=== PATIENT | female | born 1975 | race Caucasian/White ===

== ENCOUNTER 2017-12-09 22:14 | Emergency (ER) | payer OTHER ==
[2017-12-09 23:45] LABS: URINE BLOOD (Dip) POC Trace-intact (NEGATIVE); URINE KETONES (Dip) POC Negative (NEGATIVE); URINE LEUKOCYTE EST (Dip) POC Negative (NEGATIVE); URINE NITRITE (Dip) POC Negative (NEGATIVE); URINE TOTAL PROTEIN POC 1+ (NEGATIVE)
[2017-12-09 23:45] LABS: URINE PH (Dip) POC 5.5 (5.0-8.5)
[2017-12-09] MEDS: HYDROCODONE/APAP (5/325) TAB PO (23:51)
[2017-12-09] MEDS: KETOROLAC 60 MG INJ IM (23:52)
== END 2017-12-10 00:18 | disposition home or self-care (01) ==
LOC: FTE 12-10 00:18
DX: M54.5 Low back pain (principal); E11.9 Type 2 diabetes mellitus without complications; Z79.4 Long term (current) use of insulin
CPT/HCPCS: 81003; 81025; 96372; 99284-25

== ENCOUNTER 2018-05-23 09:21 | Day surgery (SDC) | payer OTHER ==
[~2018-05-23 09:21] MED LIST: DESFLURANE 15 MIN; SUCCINYLCHOLINE CHLORIDE 100 MG/5 ML SYG IV
[2018-05-23 10:56] LABS: ADD MAN DIFF? NO
[2018-05-23 10:59] LABS: BASOPHILS % 0.3 % (0.0-2.0); EOSINOPHILS # 0.1 10^3/ul (0.0-0.5); EOSINOPHILS % 1.4 % (0.0-7.0); HEMATOCRIT 41.9 % (37.0-47.0); HEMOGLOBIN 13.8 g/dl (12.0-16.0); LYMPHOCYTES # 2.2 10^3/ul (0.8-2.9); LYMPHOCYTES % 37.6 % (15.0-51.0); MEAN CORPUSCULAR HEMOGLOBIN 28.6 pg (29.0-33.0); MEAN CORPUSCULAR HGB CONC 32.9 g/dl (32.0-37.0); MEAN CORPUSCULAR VOLUME 86.7 fl (82.0-101.0); MEAN PLATELET VOLUME 9.8 fl (7.4-10.4); MONOCYTE # 0.4 10^3/ul (0.3-0.9); MONOCYTES % 6.1 % (0.0-11.0); NEUTROPHIL # 3.2 10^3/ul (1.6-7.5); NEUTROPHILS % 54.4 % (39.0-77.0); PLATELET COUNT 245 10^3/UL (140-415); RED BLOOD COUNT 4.83 10^6/ul (4.20-5.40); RED CELL DISTRIBUTION WIDTH 13.2 % (11.5-14.5)
[2018-05-23 10:59] LABS: WHITE BLOOD COUNT 5.9 10^3/ul (4.8-10.8)
[2018-05-23] MEDS ORDERED: SOD CHLORIDE 0.9% 1,000 ML IV (11:00)
[2018-05-23] MEDS ORDERED: MIDAZOLAM 1 MG/ML 2 ML INJ (11:05)
[2018-05-23] MEDS ORDERED: PROPOFOL 20 ML (11:05)
[2018-05-23] MEDS ORDERED: GLYCOPYRROLATE 0.4 MG INJ (11:05)
[2018-05-23] MEDS ORDERED: FENTAnyl 50 MCG/ML VIAL (11:05)
[2018-05-23] MEDS ORDERED: ROCURONIUM 50 MG INJ (11:05)
[2018-05-23] MEDS ORDERED: DEXAMETHASONE 4 MG/ML 5 ML INJ (11:05)
[2018-05-23] MEDS ORDERED: CEFAZOLIN 1 GM INJ (11:05)
[2018-05-23] MEDS ORDERED: ONDANSETRON 4 MG INJ (11:05)
[2018-05-23 11:27] LABS: ALANINE AMINOTRANSFERASE 23 IU/L (13-69); ALBUMIN 4.5 g/dl (3.3-4.9); ALBUMIN/GLOBULIN RATIO 1.25; ALKALINE PHOSPHATASE 95 IU/L (42-121); ANION GAP 11 (5-13); ASPARTATE AMINO TRANSFERASE 25 IU/L (15-46); BILIRUBIN,INDIRECT 0.4 mg/dl (0-1.1); BILIRUBIN,TOTAL 0.4 mg/dl (0.2-1.3); BLOOD UREA NITROGEN 11 mg/dl (7-20); CALCIUM 9.3 mg/dl (8.4-10.2); CARBON DIOXIDE 26 mmol/L (21-31); CHLORIDE 104 mmol/L (97-110); CREATININE 0.49 mg/dl (0.44-1.00); Estimated GFR > 60 mL/min (>60); GLUCOSE 246 mg/dl (70-220); POTASSIUM 4.2 mmol/L (3.5-5.1); SODIUM 141 mmol/L (135-144); TOTAL PROTEIN 8.1 g/dl (6.1-8.1)
[2018-05-23 11:29] LABS: PROTIME 12.3 Sec (11.9-14.9)
[2018-05-23 11:30] LABS: PARTIAL THROMBOPLASTIN TIME 26.4 Sec (23.0-35.0)
[2018-05-23] MEDS: CEFAZOLIN 2 GM/50 ML (PMX) 50 ML IVPB (12:16)
[2018-05-23] MEDS ORDERED: MEPERIDINE 25 MG INJ IV (12:30)
[2018-05-23] MEDS ORDERED: hydrALAzine 20 MG INJ IV (12:30)
[2018-05-23] MEDS ORDERED: TRIMETHOBENZAMIDE 100 MG/ML VIAL IM (12:30)
[2018-05-23] MEDS ORDERED: IPRATROPIUM (NEB) 0.5 MG/2.5 ML AMP HHN (12:30)
[2018-05-23] MEDS ORDERED: FENTAnyl 50 MCG/ML VIAL IV ×2 (12:30)
[2018-05-23] MEDS ORDERED: LABETALOL HCL 20MG INJ IV (12:30)
[2018-05-23] MEDS ORDERED: EPHEDrine SULFATE 50 MG/5 ML SYG IV (12:30)
[2018-05-23] MEDS: BUPIVACAINE 0.25% (MPF) 30 ML INJ (12:32)
[2018-05-23] MEDS ORDERED: BACITRACIN 0.9 GM OINT ×2 (12:34→12:35)
[2018-05-23] MEDS: ONDANSETRON 4 MG INJ IV (13:06)
[2018-05-23] MEDS: HYDROmorphONE 1 MG/5 ML IV SYRINGE IV ×4 (13:07→14:13)
[2018-05-23] MEDS: HYDROCODONE/APAP (5/325) TAB PO (13:10)
[2018-05-23] MEDS: DIPHENHYDRAMINE 50 MG INJ IV (13:13)
[2018-05-23] MEDS: MIDAZOLAM 1 MG/ML 2 ML INJ IV (13:25)
[2018-05-23] MEDS: FENTAnyl 50 MCG/ML VIAL IV (14:23)
[2018-05-23] MEDS: ALBUTEROL 0.083% (NEB) 2.5 MG/3 ML AMP HHN (14:33)
== END 2018-05-23 16:10 | disposition home or self-care (01) ==
LOC: SDS 09:21
DX: L91.0 Hypertrophic scar (principal); L90.5 Scar conditions and fibrosis of skin; E78.5 Hyperlipidemia, unspecified; E03.9 Hypothyroidism, unspecified; E11.9 Type 2 diabetes mellitus without complications; E66.9 Obesity, unspecified; Z68.35 Body mass index [BMI] 35.0-35.9, adult
CPT/HCPCS: 14060; 80053; 82962; 85025; 85610; 85730; 88307; 94664